=== PATIENT | male | born 1995 | race Caucasian/White ===

== ENCOUNTER 2020-08-10 21:37 | Emergency (ER) | payer OTHER, SELFPAY ==
[2020-08-10 21:58] VITALS: BP 138/81; PULSE 78; RESP 16; TEMP 36.6; O2SAT 98; BMI 36.2
[2020-08-11] MEDS: Tetracaine HCl/PF 0.5% Oph Sol 4 ML DROPS 3 DROP EYE-LEFT (00:20)
[2020-08-11] MEDS: Fluorescein Sodium STRIP 1 STRIP EYE-LEFT (00:20)
--- NOTE | 2020-08-11 00:41 | ED_ITS ---
HPI - Eye Problem General Chief complaint: Eye Problems Stated complaint: eye problem Time Seen by Provider: 08/10/20 23:52 Source: patient Mode of arrival: ambulatory History of Present Illness HPI Narrative: 25-year-old male with a past medical history of asthma presenting to the ED complaining of left eye irritation, tearing, and blurry vision since this morning. Reports feels foreign body sensation in eye. Denies known foreign body, trauma/injury. Does not were glasses or contacts. Denies visual loss, nausea/vomiting MD chief complaint: eye pain and vision change Related Data Previous Rx's Medication Instructions Recorded polymyxin B sulf-trimethoprim 1 drp OPHTHALMIC-LEFT Q4H 7 Days 08/11/20 [Polytrim] ml Allergies Allergy/AdvReac Type Severity Reaction Status Date / Time No Known Allergies Allergy Unverified 08/10/20 23:52 Review of Systems Review of Systems: Constitutional: No Fever, No Chills, No Fatigue, No Malaise ENT/Mouth: No Ear Pain, No Nasal Congestion, No Hoarseness, No sore throat Eyes: + Eye Pain, + Redness, No Foreign Body, +watery discharge, +blurry vision Skin: No Skin Lesions, No rash Yes all other systems are reviewed and are negative [facility] Past Medical History Attestation statement: The following information was validated with the patient. Medical History (Updated 08/11/20 @ 01:02 by CLEMENCIA Bardales) Asthma Social History Social History Advance Directives: No Advance Directives Information Provided: No Physical Exam Vital Signs: Vital Signs: Last Vital Signs Temp 97.8 F 08/10/20 21:58 Pulse 78 08/10/20 21:58 Resp 16 08/10/20 21:58 BP 138/81 08/10/20 21:58 Pulse Ox 98 08/10/20 21:58 Body Mass Index 36.2 Const: General: cooperative and healthy appearing Orientation/consciousness: patient oriented x3 Limitations: no limitations HENMT: Head: Yes normal to inspection and Yes atraumatic Ears: hearing grossly normal bilaterally General nose exam: Normal external nose present Face and sinus: Yes normal facial exam Eyes: General: appearance normal, both eyes and all related structures Periorbital: periorbital findings normal Conjunctivae: conjunctival abnormal left conjunctival injection Corneas: corneas abnormal on the left fluorescein used and abrasion (centralized over lower aspect of pupil) central; with no foreign body noted and without ulcerations and fluorescein used Pupils: Equal, round and reactive pupils present EOM: EOMs intact bilaterally Direct Ophthalmoscopy: no photophobia Neck: Neck: Yes normal visual inspection and Yes no meningeal signs Chest: Chest palpation & inspection: normal inspection of the chest Resp: Effort & Inspection: normal respiratory effort Cardio: Rate: regular rate Skin: Rashes: no rashes Wounds: no wounds Neuro: General: patient oriented x3 and no meningeal signs Cranial nerves: Yes Equal, round and reactive pupils present Gait exam (Neuro): Normal gait present Extrem: General: Yes normal to inspection MDM - Eye Problem MDM Narrative Medical decision making narrative: 25-year-old male with a past medical history of asthma presenting to the ED complaining of left eye irritation, tearing, and blurry vision since this morning. On exam VSS, NAD/well-appearing, visual acuity 20/20 right eye, 20/40 left eye Fluorescein stain used on left eye with appreciable corneal abrasion centralized to inferior aspect of pupil. No evidence of globe rupture Plan to DC home with antibiotic drops and ophthalmology follow-up Discharge Plan Discharge Clinical Impression: Corneal abrasion Qualifiers: Encounter type: initial encounter Laterality: left Qualified Code(s): S05.02XA - Injury of conjunctiva and corneal abrasion without foreign body, left eye, initial encounter Patient Disposition: Home, Self-Care Instructions: Corneal Abrasion (ED) Additional Instructions: You have a scratch in her eye Polytrim is antibiotic ointment, apply as directed You need to follow-up with the ophthalmic pathologist on Wednesday If you develop visual change/loss, nausea/vomiting, return to the ED immediately Prescriptions: New polymyxin B sulf-trimethoprim [Polytrim] 10,000 unit- 1 mg/mL drops 1 drp ophthalmic-Left Q4H 7 Days RF: 0 Referrals: Vinh Jimenes [Physician] - 2 days Interventions: ED Discharge Assessment Last Done: 08/11/20 01:26 Discharge Date/Time: 08/11/20 01:27
== END 2020-08-11 01:27 | disposition home or self-care (01) ==
PROVIDERS: Emergency Provider Emergency Medicine
DX: S05.02XA Injury of conjunctiva and corneal abrasion without foreign body, left eye, initial encounter (principal); X58.XXXA Exposure to other specified factors, initial encounter; Y93.9 Activity, unspecified; Y92.9 Unspecified place or not applicable; Y99.9 Unspecified external cause status
CPT/HCPCS: 99284